=== PATIENT | female | born 1985 | race Caucasian/White ===

== ENCOUNTER 2016-12-07 13:44 | Emergency (ER) | payer MEDICAID ==
[~2016-12-07] VITALS: Ht 157.5 cm; Wt 54.5 kg
[~2016-12-07 13:44] MED LIST: DEPO-PROVER400 MG/ML IM; EQUALINE PRENATAL PO; IRON325 M2 PO; MOTRIN 800800 MG/TAB PO; NIX CREME RINSE60 M1 TP; PERCOCET 325 MG1 TA2 PO; PHENERGAN 25 TA25 MG PO; PHENERGAN25 MG RC; PRENATAL FORMU1 EAC3 PO; PROAIR HFA0.09 MG/AC IH; REGLAN 10MG10 MG/TAB PO; RT ADVAIR HFA 412 GM IH; TYLENOL 325MG325 MG PO
[2016-12-07 13:54] VITALS: BP 132/64; PULSE 88; TEMP 98.3
[2016-12-07] MEDS ORDERED: PHENERGAN 25 TA25 MG PO (14:45)
== END 2016-12-07 15:33 | disposition home or self-care (01) ==
LOC: COL.ER 13:44
DX: R51 Headache (principal); I10 Essential (primary) hypertension
CPT/HCPCS: J2550

== ENCOUNTER 2016-12-17 22:02 | Emergency (ER) | payer MEDICAID ==
[~2016-12-17] VITALS: Ht 157.5 cm; Wt 53.6 kg
[2016-12-17 22:06] VITALS: TEMP 98
[2016-12-17 23:17] VITALS: BP 112/56; PULSE 86
== END 2016-12-17 23:18 | disposition home or self-care (01) ==
LOC: COL.ER 22:02
DX: G43.909 Migraine, unspecified, not intractable, without status migrainosus (principal); F17.210 Nicotine dependence, cigarettes, uncomplicated
CPT/HCPCS: J1885

== ENCOUNTER 2016-12-27 05:17 | Emergency (ER) | payer MEDICAID ==
[~2016-12-27] VITALS: Ht 157.5 cm; Wt 54.5 kg
[2016-12-27 05:19] VITALS: TEMP 98.6
[2016-12-27] MEDS ORDERED: MAXALT MLT5 MG PO (06:28)
[2016-12-27 06:57] VITALS: BP 114/73; PULSE 64
== END 2016-12-27 06:58 | disposition home or self-care (01) ==
LOC: COL.ER 05:17
DX: G43.909 Migraine, unspecified, not intractable, without status migrainosus (principal)
CPT/HCPCS: J1885; J2550

== ENCOUNTER 2017-11-08 23:23 | Emergency (ER) | payer BC ==
[~2017-11-08] VITALS: Ht 157.5 cm; Wt 59.1 kg
[~2017-11-08 23:23] MED LIST changes: +MAXALT MLT5 MG PO
[2017-11-08 23:27] VITALS: BP 131/80; TEMP 98.3
[2017-11-08] MEDS ORDERED: IMITREX100 MG PO (23:32)
[2017-11-08] MEDS ORDERED: CELEXA 20MG20 MG/TAB PO (23:33)
[2017-11-08] MEDS ORDERED: INDERAL 10MG10 MG PO (23:33)
[2017-11-08] MEDS ORDERED: PROAIR HFA0.09 MG/AC IH (23:34)
[2017-11-09 00:45] VITALS: PULSE 70
== END 2017-11-09 00:43 | disposition home or self-care (01) ==
LOC: COL.ER 23:23
DX: G43.909 Migraine, unspecified, not intractable, without status migrainosus (principal); F17.210 Nicotine dependence, cigarettes, uncomplicated
CPT/HCPCS: J3030

== ENCOUNTER 2017-11-19 08:11 | Emergency (ER) | payer BC ==
[~2017-11-19] VITALS: Ht 157.5 cm; Wt 62.8 kg
[~2017-11-19 08:11] MED LIST changes: +CELEXA 20MG20 MG/TAB PO; +IMITREX100 MG PO; +INDERAL 10MG10 MG PO
[2017-11-19 08:16] VITALS: BP 115/71; TEMP 97.3
[2017-11-19 09:30] VITALS: PULSE 80
== END 2017-11-19 09:31 | disposition home or self-care (01) ==
LOC: COL.ER 08:11
DX: G43.909 Migraine, unspecified, not intractable, without status migrainosus (principal); Z88.2 Allergy status to sulfonamides; F17.210 Nicotine dependence, cigarettes, uncomplicated; F12.90 Cannabis use, unspecified, uncomplicated
CPT/HCPCS: J3030

== ENCOUNTER 2018-01-23 12:29 | Emergency (ER) | payer SELFPAY ==
[~2018-01-23] VITALS: Ht 157.5 cm; Wt 64.4 kg
[2018-01-23 12:36] VITALS: BP 111/65; TEMP 99.4
[2018-01-23 14:12] VITALS: PULSE 70
== END 2018-01-23 14:13 | disposition home or self-care (01) ==
LOC: COL.ER 12:29
DX: G43.909 Migraine, unspecified, not intractable, without status migrainosus (principal); F17.210 Nicotine dependence, cigarettes, uncomplicated; J45.909 Unspecified asthma, uncomplicated; Z88.2 Allergy status to sulfonamides
CPT/HCPCS: J1885; J2550

== ENCOUNTER 2018-05-11 17:48 | Emergency (ER) | payer SELFPAY ==
[~2018-05-11] VITALS: Ht 157.5 cm; Wt 61.4 kg
[2018-05-11 17:54] VITALS: TEMP 97.1
[2018-05-11 18:53] VITALS: BP 126/61; PULSE 84
== END 2018-05-11 18:55 | disposition home or self-care (01) ==
LOC: COL.ER 17:48
DX: G43.909 Migraine, unspecified, not intractable, without status migrainosus (principal); F12.90 Cannabis use, unspecified, uncomplicated; J45.909 Unspecified asthma, uncomplicated; F17.210 Nicotine dependence, cigarettes, uncomplicated; Z88.2 Allergy status to sulfonamides
CPT/HCPCS: J1885; J2550

== ENCOUNTER 2018-05-14 21:52 | Emergency (ER) | payer SELFPAY ==
[~2018-05-14] VITALS: Ht 157.5 cm; Wt 61.4 kg
[2018-05-14 21:58] VITALS: BP 123/56; TEMP 97.4
[2018-05-15 00:05] VITALS: PULSE 77
== END 2018-05-15 00:05 | disposition home or self-care (01) ==
LOC: COL.ER 21:52
DX: G43.909 Migraine, unspecified, not intractable, without status migrainosus (principal); J45.909 Unspecified asthma, uncomplicated; F17.210 Nicotine dependence, cigarettes, uncomplicated; Z88.2 Allergy status to sulfonamides
CPT/HCPCS: J1885; J2550

== ENCOUNTER 2018-05-16 17:04 | Emergency (ER) | payer SELFPAY ==
[~2018-05-16] VITALS: Ht 157.5 cm; Wt 61.4 kg
[2018-05-16 17:26] VITALS: BP 106/66; PULSE 113; TEMP 98.1
== END 2018-05-16 18:30 | disposition left against medical advice (07) ==
LOC: COL.ER 17:04
DX: G43.909 Migraine, unspecified, not intractable, without status migrainosus (principal)

== ENCOUNTER 2018-07-02 12:20 | Emergency (ER) | payer SELFPAY ==
[~2018-07-02] VITALS: Ht 157.5 cm; Wt 61.4 kg
[2018-07-02 12:48] VITALS: BP 135/78; PULSE 111; TEMP 99.1
== END 2018-07-02 15:12 | disposition left against medical advice (07) ==
LOC: COL.ER 12:20
DX: R05 Cough (principal)

== ENCOUNTER 2018-07-06 20:12 | Emergency (ER) | payer SELFPAY ==
[~2018-07-06] VITALS: Ht 157.5 cm; Wt 61.4 kg
[2018-07-06 20:16] VITALS: BP 125/69; TEMP 97.9
[2018-07-06] MEDS ORDERED: IMITREX100 MG PO (21:18)
[2018-07-06 21:27] VITALS: PULSE 77
== END 2018-07-06 21:29 | disposition home or self-care (01) ==
LOC: COL.ER 20:12
DX: G43.909 Migraine, unspecified, not intractable, without status migrainosus (principal); J45.909 Unspecified asthma, uncomplicated
CPT/HCPCS: J1200; J1885; J2765

== ENCOUNTER 2018-08-06 22:52 | Emergency (ER) | payer SELFPAY ==
[~2018-08-06] VITALS: Ht 157.5 cm; Wt 61.4 kg
[2018-08-06 23:00] VITALS: BP 125/75; PULSE 108; TEMP 98.6
== END 2018-08-07 01:39 | disposition home or self-care (01) ==
LOC: COL.ER 22:52
DX: G43.909 Migraine, unspecified, not intractable, without status migrainosus (principal); J45.909 Unspecified asthma, uncomplicated; F17.210 Nicotine dependence, cigarettes, uncomplicated
CPT/HCPCS: J0780; J1200; J1885

== ENCOUNTER 2018-09-15 01:31 | Emergency (ER) | payer SELFPAY ==
[~2018-09-15] VITALS: Ht 157.5 cm; Wt 62.7 kg
[2018-09-15 01:36] VITALS: BP 125/63; TEMP 98.1
[2018-09-15 02:55] VITALS: PULSE 83
== END 2018-09-15 02:55 | disposition home or self-care (01) ==
LOC: COL.ER 01:31
DX: G43.909 Migraine, unspecified, not intractable, without status migrainosus (principal); F12.90 Cannabis use, unspecified, uncomplicated
CPT/HCPCS: J1200; J1885; J2550

== ENCOUNTER 2019-01-20 23:45 | Emergency (ER) | payer SELFPAY ==
[~2019-01-20] VITALS: Ht 157.5 cm; Wt 59.1 kg
[2019-01-20 23:54] VITALS: BP 130/70; PULSE 109; TEMP 98.8
[2019-01-21] MEDS ORDERED: TOPAMAX50 MG PO
== END 2019-01-21 01:34 | disposition home or self-care (01) ==
LOC: COL.ER 23:45
DX: G43.909 Migraine, unspecified, not intractable, without status migrainosus (principal); F17.210 Nicotine dependence, cigarettes, uncomplicated
CPT/HCPCS: J1100; J1200; J1885; J2765

== ENCOUNTER 2019-01-23 07:37 | Emergency (ER) | payer SELFPAY ==
[~2019-01-23] VITALS: Ht 157.5 cm; Wt 59.1 kg
[~2019-01-23 07:37] MED LIST changes: +TOPAMAX50 MG PO
[2019-01-23] MEDS ORDERED: PROZAC 20MG20 MG PO (07:46)
[2019-01-23] MEDS ORDERED: TYLENOL 500MG500 MG PO (07:46)
[2019-01-23] MEDS ORDERED: NEURONTIN300 MG/CAP PO (07:47)
[2019-01-23 09:41] VITALS: BP 104/59; PULSE 81; TEMP 98.4
== END 2019-01-23 09:42 | disposition home or self-care (01) ==
LOC: COL.ER 07:37
DX: G43.909 Migraine, unspecified, not intractable, without status migrainosus (principal); J45.909 Unspecified asthma, uncomplicated
CPT/HCPCS: J1100; J1200; J1630; J1885; J2550

== ENCOUNTER 2019-01-29 10:36 | Emergency (ER) | payer SELFPAY ==
[~2019-01-29] VITALS: Ht 157.5 cm; Wt 59.1 kg
[~2019-01-29 10:36] MED LIST changes: +NEURONTIN300 MG/CAP PO; +PROZAC 20MG20 MG PO; +TYLENOL 500MG500 MG PO
[2019-01-29 10:46] VITALS: BP 116/61; TEMP 99.9
[2019-01-29] MEDS ORDERED: IMITREX100 MG PO (11:07)
[2019-01-29] MEDS ORDERED: TOPAMAX50 MG PO (11:07)
[2019-01-29 12:15] VITALS: PULSE 77
== END 2019-01-29 12:15 | disposition home or self-care (01) ==
LOC: COL.ER 10:36
DX: G43.909 Migraine, unspecified, not intractable, without status migrainosus (principal); F32.9 Major depressive disorder, single episode, unspecified; F17.210 Nicotine dependence, cigarettes, uncomplicated; F41.9 Anxiety disorder, unspecified
CPT/HCPCS: J1200; J1885